=== PATIENT | female | born 1930 | race Caucasian/White ===

== ENCOUNTER 2017-09-25 16:50 | Inpatient (IN) | payer MEDICARE ==
[~2017-09-25] VITALS: Ht 152.4 cm; Wt 64.0 kg
--- NOTE | 2017-09-25 17:05 | NUR ---
RECIEVED PT AT THIS TIME. PT WAS BIB [facility] FROM HOME, DIZZINESS SINCE THIS MORNING, "ROOM IS SPINNING". PT IS A/OX3, STS SHE FELT LIKE SHE WAS GOING TO PASS OUT SO HER CAREGIVER CALLED 911. DENIES PAIN/DISCOMFORT AT THIS TIME. STS FEELS BETTER. GOWNED AND PALCED ON CONT MONITORING. WILL CONT TO MONITOR
[2017-09-25 17:24] LABS: BASOPHILS % (AUTO) 0.4 % (0.0-2.0); EOSINOPHILS % (AUTO) 3.8 % (0.0-6.0); HEMATOCRIT 36 % (33-45); HEMOGLOBIN 11.9 g/dL (11.5-14.8); LYMPHOCYTES # (AUTO) 1.7 /CMM (0.8-4.8); LYMPHOCYTES % (AUTO) 23.1 % (20.0-44.0); MEAN CORPUSCULAR HEMOGLOBIN 28 PG (26.0-33.0); MEAN CORPUSCULAR HGB CONC 33 g/dl (31.0-36.0); MEAN CORPUSCULAR VOLUME 84 fL (82-100); MONOCYTES # (AUTO) 0.5 /CMM (0.1-1.30); MONOCYTES % (AUTO) 7.4 % (2.0-12.0); NEUTROPHILS # (AUTO) 4.9 /CMM (1.8-8.9); NEUTROPHILS % (AUTO) 65.3 % (43.0-81.0); PLATELET COUNT (AUTO) 269 /CMM (150-450); RDW COEFFICIENT OF VARIATION 16.3 (11.5-15.0); RED BLOOD CELL COUNT(AUTO) 4.32 MIL/uL (4.0-5.2); WHITE BLOOD COUNT (AUTO) 7.4 K/uL (4.3-11.0)
[2017-09-25 17:31] LABS: CALCIUM, SERUM 9.3 mg/dL (8.5-10.1); CARBON DIOXIDE 26 mmol/L (21-32); CHLORIDE 104 mmol/L (98-107); CREATININE 1.4 mg/dL (0.6-1.3); GLUCOSE 92 mg/dL (74-106); POTASSIUM 3.7 mmol/L (3.5-5.1); SODIUM SERUM 137 mmol/L (136-145); UREA NITROGEN, BLOOD 29 mg/dL (7-18)
[2017-09-25 17:34] LABS: INR 0.88 (0.85-1.15)
[2017-09-25 17:40] LABS: TROPONIN I < 0.017 ng/mL (0.00-0.056)
--- NOTE | 2017-09-25 18:22 | NUR ---
CALLED NURSING [employer] AND REQUESTED A TELE BED FOR THIS PT. CALLED [facility] FOR PANEL CALL AND LESIA GAMBLE WAS PAGED.
--- NOTE | 2017-09-25 18:22 | NUR ---
PT TAKEN TO CT SCAN
[2017-09-25 18:33] LABS: APPEARANCE,URINE Clear (CLEAR); BILIRUBIN,URINE Negative (NEGATIVE); BLOOD, URINE Negative Ery/uL (NEGATIVE); COLOR,URINE Yellow (YELLOW); KETONES,URINE Negative (NEGATIVE); LEUKOCYTE ESTERASE ,URINE Negative (NEGATIVE); NITRITE, URINE Negative (NEGATIVE); PH,URINE 6.5 (5.0-8.0); PROTEIN,URINE Negative (NEGATIVE); UGLUCOSE Negative (NEGATIVE); UROBILINOGEN,URINE 0.2 EU/dL (0.2)
[2017-09-25] MEDS ORDERED: CITA20TA16 PO (19:12)
[2017-09-25] MEDS ORDERED: SUCR1TAB PO (19:12)
[2017-09-25] MEDS ORDERED: CYAN500T4 PO (19:12)
[2017-09-25] MEDS ORDERED: PANT40TA4 PO (19:12)
[2017-09-25] MEDS ORDERED: DONE5TAB34 PO (19:12)
[2017-09-25] MEDS ORDERED: FERR325T23 PO (19:12)
[2017-09-25] MEDS ORDERED: CALC1TAB PO (19:13)
[2017-09-25] MEDS ORDERED: MEMA7CAP2 PO (19:24)
[2017-09-25] MEDS ORDERED: CHOL200026 PO (19:24)
[2017-09-25] MEDS ORDERED: ACETAMINOPHEN 325 MG TABLET PO PRN (19:30)
[2017-09-25] MEDS ORDERED: MAGNESIUM HYDROXIDE 30 ML UDC PO PRN (19:30)
[2017-09-25] MEDS ORDERED: MAG HYDROX/AL HYDROX/SIMETH 30 ML UDC PO PRN (19:30)
[2017-09-25] MEDS ORDERED: ONDANSETRON HCL/PF 4 MG/2 ML VIAL IVP PRN (19:30)
[2017-09-25] MEDS ORDERED: Z GUARD REMEDY 2 OZ OINT TP PRN (19:30)
--- NOTE | 2017-09-25 19:41 | NUR ---
PT IS ASSIGNED TO TELE RM#: [id number], DX: DIZZINESS, AND ACCEPTING: LESIA GAMBLE NP
--- NOTE | 2017-09-25 19:48 | NUR ---
REPORT CALLED TO POWDER MONKEYBRYNN JASSO. WILL TRANSPORT PT VIA ACLS PROTOCOL.
--- NOTE | 2017-09-25 19:50 | NUR ---
LEATHER BELT MAKER AT BEDSIDE FOR CAROTID DOPPLER.
--- NOTE | 2017-09-25 21:15 | NUR ---
TELE 1 RN NOTE ADMITTED 86 YEARS OLD FEMALE PT FROM ER WITH THE DX OF DIZZINESS BY MAVIS GRAHAM. PT IS A/O X 3, NO SOB, NO DISTRESS OR DISCOMFORT NOTED. DENIES PAIN. DENIES DIZZINESS AT THIS TIME. SKIN INTACT. ON TELE SR 70. ORIENTED THE PT TO HER ROOM. SIDE RAILS UP X 2 AND CALL LIGHT WITHIN REACH. VSS. CONTINUE TO MONITOR HER.
[2017-09-25] MEDS: DONEPEZIL 5 MG TABLET PO SCH (21:32)
[2017-09-25] MEDS: CITALOPRAM HYDROBROMIDE 20 MG TABLET PO SCH (21:32)
[2017-09-25] MEDS: ENOXAPARIN SODIUM 30 MG/0.3 ML DISP.SYRIN SQ SCH (21:36)
[2017-09-25 23:12] VITALS: BP 133/82
[2017-09-26] VITALS: BP 161/61
[2017-09-26 04:00] VITALS: BP 169/71
[2017-09-26] MEDS: IV NS 0.9% 1,000 ML IV PRN ×2 (05:08→21:37)
[2017-09-26 06:00] VITALS: BP_SYST 155; BP_SYST 168; BP_SYST 179; BP_DIAS 63; BP_DIAS 69; BP_DIAS 81
--- NOTE | 2017-09-26 06:42 | NUR ---
TELE 1 RN NOTE PT IN BED AWAKE. LITTLE ANXIOUS. NO DISTRESS OR DISCOMFORT NOTED. DENIES PAIN. IVF NS @ 75ML/HR. ON TELE SR HR 70 ALL NEEDS ATTENDED. SIDE RAILS UP X 2 AND CALL LIGHT WITHIN REACH. WILL ENDORSE TO DAY SHIFT NURSE FOR CONTINUE TO CARE.
--- NOTE | 2017-09-26 07:15 | NUR ---
FINAL INSPECTOR PAPER INITIAL NOTES RECEIVED REPORT AND PATIENT FROM PM NURSE. PATIENT RESTING IN BED WITH NO ACUTE DISTRESS, A&O X4 YI SPEAKING HARD OF HEARING, ON TELE MON SINUS AYANNA HEART RATE 58, ON RA SAT ABOVE 97%, LEFT AC IV SITE 20 G IV INTACT AND PATENT NO S.S INFILTRATION NOTED, SPOKE WITH DAUGHTER JULIO AND WANTS TO CALL HER HER NAME NUMBER IS [phone], WILL CONTINUE TO MONITOR.
[2017-09-26 07:42] LABS: BASOPHILS % (AUTO) 0.6 % (0.0-2.0); EOSINOPHILS % (AUTO) 5.6 % (0.0-6.0); HEMATOCRIT 36 % (33-45); HEMOGLOBIN 11.7 g/dL (11.5-14.8); LYMPHOCYTES # (AUTO) 1.6 /CMM (0.8-4.8); LYMPHOCYTES % (AUTO) 25.9 % (20.0-44.0); MEAN CORPUSCULAR HEMOGLOBIN 28 PG (26.0-33.0); MEAN CORPUSCULAR HGB CONC 33 g/dl (31.0-36.0); MEAN CORPUSCULAR VOLUME 86 fL (82-100); MONOCYTES # (AUTO) 0.6 /CMM (0.1-1.30); MONOCYTES % (AUTO) 8.8 % (2.0-12.0); NEUTROPHILS # (AUTO) 3.7 /CMM (1.8-8.9); NEUTROPHILS % (AUTO) 59.1 % (43.0-81.0); PLATELET COUNT (AUTO) 238 /CMM (150-450); RDW COEFFICIENT OF VARIATION 17.8 (11.5-15.0); RED BLOOD CELL COUNT(AUTO) 4.17 MIL/uL (4.0-5.2); WHITE BLOOD COUNT (AUTO) 6.3 K/uL (4.3-11.0)
[2017-09-26 07:45] LABS: CALCIUM, SERUM 8.6 mg/dL (8.5-10.1); CARBON DIOXIDE 26 mmol/L (21-32); CHLORIDE 106 mmol/L (98-107); CREATININE 1.3 mg/dL (0.6-1.3); GLUCOSE 96 mg/dL (74-106); MAGNESIUM 1.8 mg/dL (1.8-2.4); PHOSPHORUS 3.7 mg/dL (2.5-4.9); POTASSIUM 3.9 mmol/L (3.5-5.1); SODIUM SERUM 141 mmol/L (136-145); UREA NITROGEN, BLOOD 20 mg/dL (7-18)
[2017-09-26 07:51] LABS: CHOLESTEROL 219 mg/dL (<200); HDL CHOLESTEROL 85 mg/dL (40-60); LDL 114 mg/dL (0-99); THYROID STIMULATING HORMONE 3.883 uIU/mL (0.358-3.74); TRIGLYCERIDES 72 mg/dL (30-150)
[2017-09-26] MEDS: CYANOCOBALAMIN 500 MCG TABLET PO SCH (09:33)
[2017-09-26] MEDS: ASPIRIN 325 MG TABLET PO SCH (09:35)
[2017-09-26] MEDS: SUCRALFATE 1 G TABLET PO SCH (09:35)
[2017-09-26] MEDS: PANTOPRAZOLE 40 MG TABLET.DR PO SCH (09:36)
[2017-09-26] MEDS: Z GUARD REMEDY 2 OZ OINT TP SCH (09:37)
--- NOTE | 2017-09-26 13:00 | NUR ---
SUPERVISOR DIE CASTING NOTES PATIENT HAD MOVEMENT AND RIGHT AFTER CHILI POWDER MIXER CARLINE WITNESS PATIENTS EYES ROLL BACK AND HER HEAD SHAKE FOR ABOUT 15 SECONDS, PATIENT NOTED ON MONITOR TO HAVE ASYSTOLE FOR 5 SECONDS THEN HEART RATE RESUMED BACK TO 60'S SINUS RHYTHM, PATIENT STATED SHE FEELS FINE NO HEADACHE VS STABLE BP 135/84, NOTIFIED LESIA GAMBLE DECKER OPERATOR AND DR GUZMÁN, LESIA GAMBLE STATED WILL LET DR ISAIAH SANCHEZ KNOW ABOUT IT AND WAITING FOR DR GUZMÁN TO ANSWER, POSSIBLE ALSO NEEDED FOR PSYCH CONSULT PATEINT STATES SHE FEELS THIS WAY WHEN SHE GETS VERY ANXIOUS, CAREGIVER AT BEDSIDE, PT STABLE AT THIS TIME AND WILL CONTINUE TO MONITOR.
[2017-09-26 16:00] VITALS: BP 163/73
--- NOTE | 2017-09-26 18:52 | NUR ---
SPORTS PHYSICIAN ENDING NOTES PATIENT RESTING IN BED WITH NO ACUTE DISTRESS NOTED, NPO AFTER MIDNIGHT, PER DR HERNÁNDEZ WILL INSERT PACEMAKER IN AM TOMORROW, CONSENTS SIGNED AND PLACED IN CHART, SPOKE WITH DAUGHTER JULIO AND WILL HAVE LESIA GAMBLE CALL HER TO DISCUSS PLAN, ALL DUE MEDS GIVEN, ALL NEEDS MET, WILL ENDORSE TO PM NURSE.
--- NOTE | 2017-09-26 19:30 | NUR ---
RN OPENING NOTES; RECEIVED PATIENT IN BED NOT IN APPARENT DISTRESS ALERT AND ORIENTED X4, NO COMPLAINTS OF PAIN; ON ROOM AIR, TOLERATED WELL. AFIB ON MONITOR HR AT 60 BPM. REMINDED PATIENT SHE CANNOT HAVE ANYTHING TO EAT OR DRINK AFTER MIDNIGHT. PATIENT AWARE AND AMENABLE. IV ACCESS INTACT ON LEFT AC, IVF INFUSING ORDERED. CALL LIGHT IN REACH.SAFETY MEASURES ENSURED AT ALL TIMES. CONTINUOUSLY MONITORED.
[2017-09-26 20:00] VITALS: BP 148/74
[2017-09-26] MEDS: ENOXAPARIN SODIUM 30 MG/0.3 ML DISP.SYRIN SQ SCH (21:00)
--- NOTE | 2017-09-26 21:00 | NUR ---
RN NOTES: REFERRED TO MD IF OK TO GIVE LOVENOX, PATIENT HAS PENDING PROCEDURE IN AM. PER ONCALL AIRCRAFT DESIGN ENGINEER TO HOLD LOVENOX AND APPLY DVT PUMPS. NOTED AND CARRIED OUT.
[2017-09-26] MEDS: CITALOPRAM HYDROBROMIDE 20 MG TABLET PO SCH (21:28)
[2017-09-26] MEDS: DONEPEZIL 5 MG TABLET PO SCH (21:28)
[2017-09-26] MEDS: SIMVASTATIN 20 MG TABLET PO SCH (21:28)
[2017-09-27] VITALS (8 sets, daily range): BP systolic 110–172; BP diastolic 45–69
--- NOTE | 2017-09-27 | NUR ---
RN NOTES; PATIENT BP AT 165/60. PATIENT CLAIMS SHE IS FEELING FINE AND JUST HAD HER 'BEST SLEEP YET. 0100 RECHECKED BP; SBP 172 ON RIGHT ARM AND 169 ON LEFT ARM. STILL PATIENT DENIES OF ANY OTHER SYMPTOMS. BALLOON MAKER ONCWONG JEWELL MADE AWARE. WITH NEW ORDERS FOR HYDRALAZINE IVP PRN. NOTED AND CARRIED OUT. PATIENT MADE AWARE AND AMENABLE. 0230 BP RECHECKED AT 157/69. 0240 PATIENT COMPLAINED OF NAUSEA NOW WITHOUT VOMITING, AND FEELS LIKE HER BREATHING IS "LABORED" AND FEELS HER NOSE IS GETTING 'STUFFY". PLACED PATIENT ON SUPPLEMENTAL O2. ZOFRAN GIVEN WELL FOR NAUSEA. PATIENT NOTED TO BE SLIGHTLY GETTING WORRIED AND ANXIOUS. ENCOURAGED VERBALIZATION OF FEELINGS AND SUPPORT RENDERED. TO CONTINUOUSLY MONITORED.
[2017-09-27] MEDS ORDERED: hydrALAZINE HCL IV 20 MG VIAL IV PRN (01:30)
[2017-09-27 06:29] LABS: BASOPHILS % (AUTO) 0.4 % (0.0-2.0); EOSINOPHILS % (AUTO) 4.5 % (0.0-6.0); HEMATOCRIT 36 % (33-45); HEMOGLOBIN 11.8 g/dL (11.5-14.8); LYMPHOCYTES # (AUTO) 1.6 /CMM (0.8-4.8); LYMPHOCYTES % (AUTO) 21.9 % (20.0-44.0); MEAN CORPUSCULAR HEMOGLOBIN 28 PG (26.0-33.0); MEAN CORPUSCULAR HGB CONC 33 g/dl (31.0-36.0); MEAN CORPUSCULAR VOLUME 86 fL (82-100); MONOCYTES # (AUTO) 0.6 /CMM (0.1-1.30); MONOCYTES % (AUTO) 7.3 % (2.0-12.0); NEUTROPHILS # (AUTO) 4.9 /CMM (1.8-8.9); NEUTROPHILS % (AUTO) 65.9 % (43.0-81.0); PLATELET COUNT (AUTO) 246 /CMM (150-450); RDW COEFFICIENT OF VARIATION 17.8 (11.5-15.0); RED BLOOD CELL COUNT(AUTO) 4.18 MIL/uL (4.0-5.2); WHITE BLOOD COUNT (AUTO) 7.5 K/uL (4.3-11.0)
--- NOTE | 2017-09-27 06:44 | NUR ---
RN CLOSING NOTES; PATIENT REMAINED IN BED NOT IN APPARENT DISTRESS. NO COMPLAINTS OF PAIN. MAINTAINED ON SUPPLEMENTAL O2. KEPT NPO. SKIN CARE RENDERED. BP MAINTAINED WNL. SAFETY MEASURES ENSURED. AM LABS DRAWN. PENDING RESULTS. SEMI REPORT GIVEN TO FAITH HEALER. CONTINUOUSLY MONITORED. TO ENDORSE TO AM SHIFT RN.
[2017-09-27 07:01] LABS: CALCIUM, SERUM 8.2 mg/dL (8.5-10.1); CARBON DIOXIDE 25 mmol/L (21-32); CHLORIDE 107 mmol/L (98-107); CREATININE 1.1 mg/dL (0.6-1.3); GLUCOSE 98 mg/dL (74-106); MAGNESIUM 1.5 mg/dL (1.8-2.4); PHOSPHORUS 3.4 mg/dL (2.5-4.9); SODIUM SERUM 141 mmol/L (136-145); UREA NITROGEN, BLOOD 17 mg/dL (7-18)
[2017-09-27] MEDS: PANTOPRAZOLE 40 MG TABLET.DR PO SCH (07:30)
[2017-09-27] MEDS: ASPIRIN 325 MG TABLET PO SCH (09:00)
[2017-09-27] MEDS: SUCRALFATE 1 G TABLET PO SCH (09:00)
[2017-09-27] MEDS: Z GUARD REMEDY 2 OZ OINT TP SCH (09:00)
[2017-09-27] MEDS: FLUTICASONE/VILANTEROL 1 EACH BLST.W.DEV IH SCH (09:00)
[2017-09-27] MEDS: CYANOCOBALAMIN 500 MCG TABLET PO SCH (09:00)
[2017-09-27] MEDS ORDERED: LIDOCAINE HCL/PF 1% 30 ML SDV ONE (10:39)
[2017-09-27] MEDS ORDERED: IOHEXOL 240MG/ML 50 ML IV ONE (10:40)
[2017-09-27] MEDS: Magnesium 1GM/D5W 100ML PREMIX 100 ML IV SCH ×2 (13:30→14:45)
[2017-09-27] MEDS ORDERED: HYDROCODONE/APAP 10/325MG 1 EA TABLET PO PRN (14:30)
[2017-09-27] MEDS ORDERED: MORPHINE SULFATE INJ 2 MG/ML DISP.SYRIN IV PRN (14:30)
[2017-09-27] MEDS: HYDROCODONE/APAP 5/325MG 1 EACH TABLET PO PRN (14:38)
[2017-09-27] MEDS: IV NS 0.9% 1,000 ML IV PRN (14:44)
--- NOTE | 2017-09-27 20:00 | NUR ---
RN NOTES - MED SURG - RECEIVED REPORT AND PATIENT RESTING IN BED WITH NO ACUTE DISTRESS, A&O X4 BARBADIAN SPEAKING, ON TELE MONITORING SINUS RHYTHM, ON RA SAT ABOVE 94%, LEFT AC IV SITE 20 G IV INTACT AND PATENT NO S.S INFILTRATION NOTED, SPOKE WITH DAUGHTER JULIO AND WANTS TO CALL HER HER NAME NUMBER IS [phone], WILL CONTINUE TO MONITOR.
[2017-09-27] MEDS: CITALOPRAM HYDROBROMIDE 20 MG TABLET PO SCH (21:23)
[2017-09-27] MEDS: DONEPEZIL 5 MG TABLET PO SCH (21:23)
[2017-09-27] MEDS: SIMVASTATIN 20 MG TABLET PO SCH (21:23)
[2017-09-27] MEDS: ENOXAPARIN SODIUM 30 MG/0.3 ML DISP.SYRIN SQ SCH (21:24)
[2017-09-28] VITALS: BP 127/54
[2017-09-28] MEDS: HYDROCODONE/APAP 5/325MG 1 EACH TABLET PO PRN (00:20)
[2017-09-28 04:00] VITALS: BP 99/41
[2017-09-28] MEDS: IV NS 0.9% 1,000 ML IV PRN (05:38)
--- NOTE | 2017-09-28 07:00 | NUR ---
RN NOTES RECEIVED PT ON BED, A/Ox4, RESPIRATION EVEN AND UNLABORED, ON R A , NO SOB NOTED, ON TELE SR , HR IN 70'S , SLING ON L ARM INPLACED , L AC IV SITE G 20 CLEAN ,DRY AND INTACT , WITH NS AT 75CC/HR RUNNING , SR UP x3, CALL LIGHT WITHIN EASY REACH, BED LOCKED AND IN LOWEST POSITION , CONTINUE TO MONITOR .
[2017-09-28 07:08] LABS: ALANINE AMINOTRANSFERASE 12 U/L (12-78); ALBUMIN 2.5 g/dL (3.4-5.0); ALKALINE PHOSPHATASE 51 U/L (46-116); ASPARTATE AMINOTRANSFERASE 16 U/L (15-37); BILIRUBIN,TOTAL 0.5 mg/dL (0.2-1.0); CALCIUM, SERUM 7.9 mg/dL (8.5-10.1); CARBON DIOXIDE 28 mmol/L (21-32); CHLORIDE 108 mmol/L (98-107); CREATININE 1.1 mg/dL (0.6-1.3); GLUCOSE 96 mg/dL (74-106); MAGNESIUM 2.1 mg/dL (1.8-2.4); PHOSPHORUS 3.8 mg/dL (2.5-4.9); POTASSIUM 4.6 mmol/L (3.5-5.1); SODIUM SERUM 139 mmol/L (136-145); TOTAL PROTEIN, SERUM 5.3 g/dL (6.4-8.2); UREA NITROGEN, BLOOD 17 mg/dL (7-18)
[2017-09-28] MEDS: IPRATROPIUM NEB FS 0.5 MG/2.5 ML AMPUL.NEB NEB SCH ×2 (07:35→12:58)
[2017-09-28 08:00] VITALS: BP 143/56
[2017-09-28] MEDS: ASPIRIN 325 MG TABLET PO SCH (08:18)
[2017-09-28] MEDS: SUCRALFATE 1 G TABLET PO SCH (08:18)
[2017-09-28] MEDS: CYANOCOBALAMIN 500 MCG TABLET PO SCH (08:18)
[2017-09-28] MEDS: PANTOPRAZOLE 40 MG TABLET.DR PO SCH (08:18)
[2017-09-28] MEDS: Z GUARD REMEDY 2 OZ OINT TP SCH (08:19)
--- NOTE | 2017-09-28 08:28 | NUR ---
PT REFUSED RESP TX AT THIS TIME. NO S/S OF SOB NOTED. BRYNN CHOU AT BEDSIDE. WILL CONTINUE TO MONITOR Addendum: 09/28/17 at 0829 by BARON SAMS RT Amended: Links added.
[2017-09-28] MEDS: FLUTICASONE/VILANTEROL 1 EACH BLST.W.DEV IH SCH (08:29)
[2017-09-28] MEDS ORDERED: SIMV20TA6 PO (12:18)
[2017-09-28] MEDS ORDERED: ASPI-605 PO (12:18)
--- NOTE | 2017-09-28 12:43 | NUR ---
RN NOTES PT REFUSED TO GO TO REHAB. STATED SHE WILL ASK HER JAVASCRIPT ENGINEER TO STAY 24 HOURS WITH HER TILL SHE GETS BETTER AND ALSO SHE HAS HOME HEALTH THAT THEY WILL FOLLOW UP WITH HER AT HOME .
--- NOTE | 2017-09-28 13:21 | NUR ---
RN NOTES PT PANELBOARD TANK PUMPER AND COUSIN AT THE BEDSIDE. PANELBOARD TANK PUMPER STATED THAT SHE WILL MAKE SURE SOMEONE WILL STAY WITH HER 24 HRS TILL SHE FEELS BETTER .
--- NOTE | 2017-09-28 13:24 | NUR ---
RN NOTES PT STATED WANTS TO GO HOME WITH CIGAR PATCHER . JENNIFER DOW NOTIFED TO INFORM THE DAUGHTER THAT SHE NEEDS CIGAR PATCHER 24 HOURS FOR NOW.
--- NOTE | 2017-09-28 14:36 | NUR ---
RN NOTES DISCHARGE INSTRUCTION GIVEN TO PT AND SOFTWOOD FALLER . PT VERBALIZES UNDERSTANDING , DISCHARGE SKIN PHOTO TAKEN , PT LEFT THE FLOOR TO MAIN ENTRANCE ACCOMPANIED BY COUSIN AND SOFTWOOD FALLER IN STABLE CONDITION. L AC IV SITE DISCONTINUED.
== END 2017-09-28 13:00 | disposition home or self-care (01) | DRG 242 ==
LOC: ER 16:55 → TELE1 20:03 → MEDSG1 09-27 08:31 → TELE1 09-27 12:29 → MEDSG1 09-28 01:33 → TELE-TD 09-28 05:57
PROVIDERS: ADMIT Registered Nurse; ATTEND Registered Nurse
PROC: 02HK3JZ Insertion of Pacemaker Lead into Right Ventricle, Percutaneous Approach (ICD-10-PCS; 2017-09-27)
PROC: 0JH606Z Insertion of Pacemaker, Dual Chamber into Chest Subcutaneous Tissue and Fascia, Open Approach (ICD-10-PCS; principal; 2017-09-27 10:30)
DX: I45.5 Other specified heart block (principal); N17.0 Acute kidney failure with tubular necrosis; N18.9 Chronic kidney disease, unspecified; I12.9 Hypertensive chronic kidney disease with stage 1 through stage 4 chronic kidney disease, or unspecified chronic kidney disease; K21.9 Gastro-esophageal reflux disease without esophagitis; Z86.73 Personal history of transient ischemic attack (TIA), and cerebral infarction without residual deficits; Z95.2 Presence of prosthetic heart valve; Z88.4 Allergy status to anesthetic agent; Z79.899 Other long term (current) drug therapy; D50.9 Iron deficiency anemia, unspecified; F32.9 Major depressive disorder, single episode, unspecified; F41.9 Anxiety disorder, unspecified
CPT/HCPCS: 36415; 70450-TC; 71045-TC; 80048-TC; 80053-TC; 80061-TC; 81000-TC; 82962-TC; 83735-TC; 84100-TC; 84443-TC; 84484-TC; 85025-TC; 85730-TC; 87081-TC; 92521; 93307-TC; 93880-TC; A4606; J0360; J1650; J2405; J3475; J3490; J7030; Q9966; Z7610